=== PATIENT | male | born 1980 | race Caucasian/White ===

== ENCOUNTER → 2018-04-30 | Outpatient (CLI) | payer BC ==
--- NOTE | 2018-05-01 08:27 | XR ---
EXAMINATION TYPE: XR forearm LT DATE OF EXAM: 04/30/2018 COMPARISON: NONE HISTORY: Pain Two views of the forearm demonstrate that the osseous structures appear to be intact and the joint sp aces appear to be preserved. There is no acute fracture or dislocation. IMPRESSION: 1. No acute fracture or dislocation
--- NOTE | 2018-05-01 08:29 | XR ---
EXAMINATION TYPE: XR humerus LT DATE OF EXAM: 04/30/2018 COMPARISON: NONE HISTORY: Pain TECHNIQUE: 2 views submitted. FINDINGS: The osseous structures are intact and the joint spaces are preserved. IMPRESSION: 1. No acute fracture or dislocation.
== END | disposition home or self-care (01) ==
LOC: RADXRMAIN 17:57
PROVIDERS: ATTEND Internal Medicine
DX: M79.622 Pain in left upper arm (principal)

== ENCOUNTER → 2018-05-28 | Outpatient (CLI) | payer BC ==
--- NOTE | 2018-05-29 06:43 | MR ---
EXAMINATION TYPE: MR forearm LT wo con DATE OF EXAM: 05/28/2018 COMPARISON: Left forearm and humerus x-ray April 30, 2018. HISTORY: Lt forearm pain, Spontaneous rupture of biceps tendon suspected. Standard multiplanar, multisequence MRI departmental protocol Multiplanar, multisequence images of the left forearm were acquired. FINDINGS: The distal head of biceps tendon is not identified, retracted tear is felt present. There i s small focus of fluid on the most superior axial images. No suspicious edema is seen in the visualized proximal to mid forearm. Muscle bulk is preserved. No w orrisome fluid collection or soft tissue swelling is noted. IMPRESSION: Suspected retracted complete tear of the distal biceps tendon with no normal tendon identified attach ing to proximal radius.
== END | disposition home or self-care (01) ==
LOC: RADMRIMAIN 19:43
PROVIDERS: ATTEND Nurse Practitioner Primary Care
DX: M66.222 Spontaneous rupture of extensor tendons, left upper arm (principal)

== ENCOUNTER → 2018-11-25 | Outpatient (CLI) | payer BC ==
--- NOTE | 2018-11-26 09:12 | US ---
EXAMINATION TYPE: US kidneys/renal and bladder DATE OF EXAM: 11/25/2018 COMPARISON: NONE CLINICAL HISTORY: N18.2 Chronic Kidney Disease Stage II. abnormal labs EXAM MEASUREMENTS: Right Kidney: 11.8 x 5.7 x 6.5 cm Left Kidney: 11.5 x 5.9 x 6.4 cm Right Kidney: No hydronephrosis or masses seen Left Kidney: No hydronephrosis or masses seen Bladder: distended, wnl Bilateral Jets seen There is no evidence for hydronephrosis at this point in time. No nephrolithiasis is seen. No jeffrey s are identified. The urinary bladder is anechoic. Bilateral ureteral jets are seen. IMPRESSION: No distinct abnormality appreciated.
== END ==
LOC: RADUSWWP 16:13
PROVIDERS: ATTEND Internal Medicine
DX: N18.2 Chronic kidney disease, stage 2 (mild) (principal)
CPT/HCPCS: 76770

== ENCOUNTER 2024-08-14 14:32 | Emergency (ER) | payer BC ==
[2024-08-14 14:41] VITALS: RESP 20; TEMP 98.2
--- NOTE | 2024-08-14 15:04 | ED ---
Extremity Problem HPI - General Chief complaint: Extremity Problem,Nontraumatic Stated complaint: Blood clot in right leg Time Seen by Provider: 08/14/24 14:54 Source: patient, family, RN notes reviewed Mode of arrival: ambulatory Limitations: no limitations - History of Present Illness Initial comments: 44-year-old male presents emergency department from outpatient ultrasound for evaluation of positive ultrasound for DVT. Patient states he started with leg discomfort and swelling patient states that he has no complaint of chest pain shortness of breath no trauma no recent traveling no history of DVT he states he otherwise feels fine other than some mild leg discomfort and cramping. - Related Data Home Medications Medication Instructions Recorded Confirmed Cholecalciferol (Vitamin D3) 1,250 mcg PO MO 08/14/24 08/14/24 [Vitamin D3 (1250 Mcg = 50,000 Iu)] Dextroamphetamine/Amphetamine 30 mg PO DAILY 08/14/24 08/14/24 [Adderall] Furosemide [Lasix] 20 mg PO BID PRN 08/14/24 08/14/24 Losartan Potassium 100 mg PO DAILY 08/14/24 08/14/24 Potassium Chloride 10 meq PO DAILY 08/14/24 08/14/24 Testosterone Cypionate 100 mg IM Q14D 08/14/24 08/14/24 [Depo-Testosterone] amLODIPine [Norvasc] 10 mg PO DAILY 08/14/24 08/14/24 tadalafiL 20 mg PO DAILY PRN 08/14/24 08/14/24 Previous Rx's Medication Instructions Recorded Apixaban [Eliquis Starter Pack 0 mg PO DIRECTED 30 Days #1 08/14/24 (for VTE)] packet HYDROcodone/APAP 5-325MG [[place] 5] 1 each PO Q6HR PRN #12 tab 08/14/24 Allergies Allergy/AdvReac Type Severity Reaction Status Date / Time banana AdvReac body pain Verified 08/14/24 15:19 Pork/Porcine Containing AdvReac body pain Verified 08/14/24 15:19 Products [Pork] deer AdvReac body pain Uncoded 08/14/24 15:19 red meat AdvReac body pain Uncoded 08/14/24 15:19 Review of Systems ROS Statement: Those systems with pertinent positive or pertinent negative responses have been documented in the HPI. ROS Other: All systems not noted in ROS Statement are negative. Past Medical History Past Medical History: Heart Failure, Hypertension Past Surgical History: Orthopedic Surgery Past Psychological History: ADD/ADHD Smoking Status: Never smoker Past Alcohol Use History: Occasional Past Drug Use History: None Reported General Exam Limitations: no limitations General appearance: alert, in no apparent distress Head exam: Present: atraumatic, normocephalic, normal inspection Neck exam: Present: normal inspection, full ROM. Absent: tenderness, meningismus, lymphadenopathy Respiratory exam: Present: normal lung sounds bilaterally. Absent: respiratory distress, wheezes, rales, rhonchi, stridor Cardiovascular Exam: Present: regular rate, normal rhythm, normal heart sounds. Absent: systolic murmur, diastolic murmur, rubs, gallop, clicks Extremities exam: Present: other (Right leg swelling, mild erythema and tenderness palpation of the right calf, neurovascular intact) Neurological exam: Present: alert, oriented X3, CN II-XII intact Skin exam: Present: warm, dry, intact, normal color. Absent: rash Course Vital Signs 08/14/24 14:37 Temperature 98.2 F Pulse Rate 85 Respiratory 20 Rate Blood Pressure 134/89 O2 Sat by Pulse 98 Oximetry Medical Decision Making - Medical Decision Making Was pt. sent in by a medical professional or institution (, PA, HOUSEKEEPING/LAUNDRY SUPERVISOR, urgent care, hospital, or correction...) When possible be specific @ -Outpatient ultrasound, PCP Did you speak to anyone other than the patient for history (EMS, parent, family, police, friend...)? What history was obtained from this source @ -No Did you review nursing and triage notes (agree or disagree)? Why? @ -I reviewed and agree with nursing and triage notes Were old charts reviewed (outside hosp., previous admission, EMS record, old EKG, old radiological studies, urgent care reports/EKG's, correction records)? Report findings @ -No old charts were reviewed Differential Diagnosis (chest pain, altered mental status, abdominal pain women, abdominal pain men, vaginal bleeding, weakness, fever, dyspnea, syncope, headache, dizziness, GI bleed, back pain, seizure, CVA, palpatations, mental health, musculoskeletal)? @ -DVT SVT EKG interpreted by me (3pts min.). @ -None X-rays interpreted by me (1pt min.). @ -None done CT interpreted by me (1pt min.). @ -None done U/S interpreted by me (1pt. min.). @ -Ultrasound lower extremity shows evidence of DVT What testing was considered but not performed or refused? (CT, X-rays, U/S, labs)? Why? @ -None What meds were considered but not given or refused? Why? @ -None Did you discuss the management of the patient with other professionals (professionals i.e. DrJan, PA, HOUSEKEEPING/LAUNDRY SUPERVISOR, lab, RT, psych nurse, social media marketing manager, tank tender, teacher, aoc airspace control officer, clinical case manager)? Give summary @ -No Was smoking cessation discussed for >3mins.? @ -No Was critical care preformed (if so, how long)? @ -No Were there social determinants of health that impacted care today? How? (Homelessness, low income, unemployed, alcoholism, drug addiction, transportation, low edu. Level, literacy, decrease access to med. care, alf, rehab)? @ -No Was there de-escalation of care discussed even if they declined (Discuss DNR or withdrawal of care, Hospice)? DNR status @ -No What co-morbidities impacted this encounter? (DM, HTN, Smoking, COPD, CAD, Cancer, CVA, ARF, Chemo, Hep., AIDS, mental health diagnosis, sleep apnea, morbid obesity)? @ -None Was patient admitted / discharged? Hospital course, mention meds given and route, prescriptions, significant lab abnormalities, going to OR and other pertinent info. @ -Discharge patient was given Eliquis in the emergency department. Patient has complaints of chest pain or shortness of breath he has only right leg pain. Patient was sent in a prescription for Eliquis patient is advised to follow-up PCP return parens discussed we did discuss risk anticoagulants and return parameters. Undiagnosed new problem with uncertain prognosis? @ -No Drug Therapy requiring intensive monitoring for toxicity (Heparin, Nitro, Insulin, Cardizem)? @ -No Were any procedures done? @ -No Diagnosis/symptom? @ -[Right leg DVT Acute, or Chronic, or Acute on Chronic? @ -Acute Uncomplicated (without systemic symptoms) or Complicated (systemic symptoms)? @ -Complicated Side effects of treatment? @ -No Exacerbation, Progression, or Severe Exacerbation? @ -No Poses a threat to life or bodily function? How? (Chest pain, [place], [place], pneumonia, PE, COPD, DKA, ARF, appy, cholecystitis, CVA, Diverticulitis, Homicidal, Suicidal, threat to staff... and all critical care pts) @ -No Disposition Clinical Impression: DVT (deep venous thrombosis) Disposition: HOME SELF-CARE Condition: Stable Instructions (If sedation given, give patient instructions): Deep Vein Thrombosis (ED) Additional Instructions: Please return to the Emergency Department if symptoms worsen or any other concerns. Prescriptions: Apixaban [Eliquis Starter Pack (for VTE)] 0 mg PO DIRECTED 30 Days #1 packet HYDROcodone/APAP 5-325MG [[place] 5] 1 each PO Q6HR PRN #12 tab PRN Reason: Pain Is patient prescribed a controlled substance at d/c from ED?: Yes When asked, does pt state using other controlled substances?: No If prescribed controlled substance>3 days was MAPS reviewed?: Prescribed <3 Days If opioid is for acute pain is fill amount 7 days or less?: Yes If Rx opioid, was Start Talking consent form obtained?: Yes Referrals: Cliff Thomas DO [Primary Care Provider] - 1-2 days Time of Disposition: 15:21
[2024-08-14] MEDS: APIXABAN 5 MG TAB PO STA (16:07)
[2024-08-14] MEDS: HYDROcodone/APAP 5-325MG 1 EACH TAB PO STA (16:07)
[2024-08-14 16:24] VITALS: BP 154/92; PULSE 78
== END 2024-08-14 16:23 | disposition home or self-care (01) ==
LOC: EC 14:32
DX: I82.401 Acute embolism and thrombosis of unspecified deep veins of right lower extremity (principal); Z91.018 Allergy to other foods
CPT/HCPCS: 99283

== ENCOUNTER → 2024-08-14 | Outpatient (CLI) | payer BC ==
--- NOTE | 2024-08-14 15:08 | US ---
EXAMINATION TYPE: US venous doppler duplex LE RT DATE OF EXAM: 08/14/2024 2:20 PM COMPARISON: NONE CLINICAL INDICATION: Male, 44 years old with history of I82.40 DVT; Swelling that started Saturday; pat ient denies any other signs, symptoms, or relevant history , Pain TECHNIQUE: The lower extremity deep venous system is examined utilizing real time linear array sonog conrad with graded compression, color doppler sonography, and spectral doppler. SIDE PERFORMED: Right FINDINGS: VESSELS IMAGED: Common Femoral Vein Deep Femoral Vein Greater Saphenous Vein * Femoral Vein Popliteal Vein Small Saphenous Vein * Proximal Calf Veins Posterior tibial veins (* superficial vessels) Right Leg: DVT seen within distal femoral vein through to the posterior tibial veins at the ankle, The clot appears occlusive with enlarged vessel caliber. IMPRESSION: Exam positive for acute DVT right lower extremity involving the posterior tibial veins up into the lo wer femoral vein. [facility], Workstation: 3, 08/14/2024 3:06 PM
== END | disposition home or self-care (01) ==
LOC: RADUSWWP 13:58
PROVIDERS: ATTEND Family Medicine
DX: I82.441 Acute embolism and thrombosis of right tibial vein (principal); I82.411 Acute embolism and thrombosis of right femoral vein